=== PATIENT | female | born 1950 | race Asian ===

== ENCOUNTER → 2017-04-15 | Outpatient (CLI) | payer OTHER | LOC: FIMAGING 10:31 | PROVIDERS: ATTEND Internal Medicine | DX: Z12.31 Encounter for screening mammogram for malignant neoplasm of breast (principal) | CPT/HCPCS: G0202 ==

== ENCOUNTER → 2018-04-26 | Outpatient (CLI) | payer OTHER | LOC: FIMAGING 14:00 | PROVIDERS: ATTEND Internal Medicine | DX: Z12.31 Encounter for screening mammogram for malignant neoplasm of breast (principal) ==